=== PATIENT | male | born 1990 | race Caucasian/White ===

== ENCOUNTER 2019-06-29 19:54 | Emergency (ER) | payer BC ==
[2019-06-29] MEDS ORDERED: Levofloxacin 250 MG Tab PO ONE (21:51)
[2019-06-29] MEDS ORDERED: Doxycycline 100 MG Cap PO ONE (21:51)
--- NOTE | 2019-06-29 21:57 | EDM.PDOC ---
ED HPI GENERAL MEDICAL PROBLEM - General Chief Complaint: Genitourinary Problem Stated Complaint: PERSONAL Time Seen by Provider: 06/29/19 21:35 Source of Information: Reports: Patient, Family () History Limitations: Reports: No Limitations - History of Present Illness INITIAL COMMENTS - FREE TEXT/NARRATIVE: 29-year-old male attends the ED complaining of intermittent bilateral testicular pain for the last 3 days. States pain seems to always come on when he standing for prolonged. Time not necessarily when he is lying or sitting. He feels that both testicles are slightly swollen as does his . No previous problems in this area. I history however he has actually worsening erectile dysfunction over the last 3 years. 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 No fever or chills. No history of inguinal hernia. He was drinking beer quite heavily on the weekend. No previous diagnosis of prostatitis. Denies any dysuria urgency or frequency left testicle hurts perhaps slightly worse on the right. 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.) Scrotum Pain Score (Numeric/FACES): 2 - Related Data Allergies Allergy/AdvReac Type Severity Reaction Status Date / Time No Known Allergies Allergy Verified 06/29/19 20:50 Home Meds: Home Meds Ciprofloxacin HCl [Cipro] 500 mg PO BID #24 tablet 06/29/19 [Rx] Doxycycline [Vibramycin] 100 mg PO BID #60 cap 06/29/19 [Rx] Past Medical History Genitourinary History: Reports: Other (See Below) (Gradually worsening erectile dysfunction for the last 3 years.) - Past Surgical History Other Musculoskeletal Surgeries/Procedures:: fractured fingers and foot Social & Family History - Tobacco Use Smoking Status *Q: Current Every Day Smoker Years of Tobacco use: 6 Packs/Tins Daily: 1 - Caffeine Use Caffeine Use: Reports: Energy Drinks - Alcohol Use Days Per Week of Alcohol Use: 7 Number of Drinks Per Day: 6 Total Drinks Per Week: 42 - Recreational Drug Use Recreational Drug Use: No - Living Situation & Occupation Living situation: Reports: Occupation: Employed ED ROS GENERAL - Review of Systems Review Of Systems: See Below Constitutional: Denies: Fever, Chills, Malaise, Weakness, Fatigue, Decreased Appetite, Weight Loss HEENT: Reports: No Symptoms Respiratory: Reports: No Symptoms Cardiovascular: Reports: No Symptoms Endocrine: Reports: No Symptoms GI/Abdominal: Reports: No Symptoms : Reports: Urgency (Occasional urgency.), Other (A lateral testicular pain she history of present illness. Gradually worsening erectile dysfunction over the last 3 years.) Musculoskeletal: Reports: No Symptoms Skin: Reports: No Symptoms Neurological: Reports: No Symptoms Psychiatric: Reports: No Symptoms Hematologic/Lymphatic: Reports: No Symptoms Immunologic: Reports: No Symptoms ED EXAM, RENAL/ - Physical Exam Exam: See Below Exam Limited By: No Limitations General Appearance: Alert, WD/WN, Anxious GI/Abdominal: Normal Bowel Sounds, Soft, Non-Tender, No Organomegaly, No Abnormal Bruit, No Mass, Pelvis Stable, Other (Male) Exam: No Hernia (No inguinal hernia and hernia appreciated on invagination of the scrotum.), Testicular Tenderness (L) (Palpable superior pole engorgement of the left epididymis.), Testicular Tenderness (R) (Double engorgement of the superior pole of the right epididymis.), Other (Pain along the distributions of the palpable vas deferens.). No: Testicular Mass Back Exam: Normal Inspection, Full Range of Motion. No: CVA Tenderness (L), CVA Tenderness (R) Extremities: Normal Inspection, Normal Range of Motion, Non-Tender Neurological: Alert, Oriented, CN II-XII Intact, Normal Cognition Psychiatric: Anxious Skin Exam: Warm, Dry, Normal Color, No Rash Course - Vital Signs Last Recorded V/S: Last Vital Signs Temp 36.7 C 06/29/19 20:50 Pulse 90 06/29/19 20:50 Resp 12 06/29/19 20:50 BP 140/87 06/29/19 20:50 Pulse Ox 98 06/29/19 20:50 - Orders/Labs/Meds Meds: Medications Discontinued Medications Generic Name Dose Route Start Last Admin Trade Name Lani WOO Reason Stop Dose Admin Doxycycline Hyclate 200 mg 06/29/19 21:51 06/29/19 22:06 Vibramycin PO 06/29/19 21:52 200 mg ONETIME ONE Administration Levofloxacin 500 mg 06/29/19 21:51 06/29/19 22:06 Levaquin PO 06/29/19 21:52 500 mg ONETIME ONE Administration - Radiology Interpretation Free Text/Narrative:: 29-year-old male presents to the ED with bilateral intermittent testicular pain over the last 3 days. Examination reveals engorgement of the superior pole of the left epididymis as well as the right epididymis but left is worse. Mild testicular tenderness bilaterally. I.e. he has bilateral mild epididymal orchitis. There is also inflammation of both vas deferens inferiorly. This infection is almost always due to a primary prostate gland infection. Infection travels retrograde down to the testicles. by history is suffering from gradually worsening erectile dysfunction over the last 3 years. He will need follow-up with a doctor in this regard for hormone evaluation as to what his testosterone levels are. 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 He also could have a primary pituitary problem. Advised him to follow-up with Dr. Juan M Gerber in this regard. In regards to his epididymoorchitis he was given initial dose of Biaxin the ED with doxepin 200 mg orally and Levaquin 500 mg orally. He will be placed on Cipro 500 mg twice a day for the next 12 days and then to start a 30 day course of Doxil cycle 100 mg twice a day for prostatitis to try and eradicate this infection. Advise Motrin 6 mg every 6 hours to reduce pain and inflammation. Advised expect improvement gradually over the next 3 days by 10 days. Will back to normal. Activity as tolerated. Departure - Departure Time of Disposition: 21:52 Disposition: Home, Self-Care 01 Condition: Fair Clinical Impression: Prostatitis, Epididymo-orchitis - Discharge Information *PRESCRIPTION DRUG MONITORING PROGRAM REVIEWED*: Not Applicable *COPY OF PRESCRIPTION DRUG MONITORING REPORT IN PATIENT [place]: Not Applicable Prescriptions: Ciprofloxacin HCl [Cipro] 500 mg PO BID #24 tablet Doxycycline [Vibramycin] 100 mg PO BID #60 cap Instructions: Prostatitis, [id number] Referrals: PCP,None [Primary Care Provider] - Forms: ED Department Discharge Additional Instructions: Evaluation the emergency room tonight in regards to development of bilateral testicular pain little worse on the left as compared to the right. Examination reveals swelling of the epididymis particular the upper pole on the left testicle and similarly on the right side but not to the same severity. There is no evidence of any one hernia. Diagnosis is epididymal orchitis. Of note this is almost always a secondary infection of the prostate gland that travels retrograde down the vas deferens to the testicles and epididymides causing him to become inflamed and infected. Treatment is antibiotics for a prolonged period of time as it is hard to get up infection in the prostate gland. Initial doses of medication given in the ED since the drug stores nearly closed. You'll need to take Cipro 500 mg twice daily for the first 12 days and then switch to doxycycline 100 mg twice daily for 30 days to clear up infection in the prostate gland. Try and limit the amount of alcohol intake over the next 34 weeks. And watch out for spicy foods and hot peppers etc. as these irritants to the prostate gland. In regards to your erectile dysfunction needed follow-up with Dr. Juan M Gerber at [facility]. You will need hormone evaluations to see why you're suffering erectile dysfunction at your age. Does be related to the pituitary gland and the brain not setting enough signals to the testicles to make testosterone his primary testicular failure. The treatment of this of course depends on what he finds. He will need serum LH routine icing hormone check. Serum follicle-stimulating hormone check. Serum prolactin check and serum testosterone levels as well as serum TSH level.
== END 2019-06-29 22:11 | disposition home or self-care (01) ==
LOC: JD.ED 19:54
DX: N45.3 Epididymo-orchitis (principal); N41.9 Inflammatory disease of prostate, unspecified; F17.210 Nicotine dependence, cigarettes, uncomplicated; Z79.899 Other long term (current) drug therapy
CPT/HCPCS: 99283; A9270